=== PATIENT | male | born 1935 | race Caucasian/White ===

== ENCOUNTER 2021-05-21 17:55 | Inpatient (IN) ==
[2021-05-21] MEDS ORDERED: Naloxone 0.4 MG/ML INJ IVP PRN (21:08)
[2021-05-21] MEDS ORDERED: Ondansetron 4 MG/2 ML VIAL IVP PRN (21:08)
[2021-05-21] MEDS ORDERED: Acetaminophen 325 MG TABLET PO PRN (21:08)
[2021-05-21] MEDS: 0.9 % Sodium Chloride 1,000 ML IVC SCH (22:00)
[2021-05-22 01:28] LABS: Basophils % 0.2 %; Eosinophils # 0.1 K/mcL (0.0-0.6); Eosinophils % 2.8 %; Hematocrit 25.8 % (37.5-50.1); Hemoglobin 7.9 g/dL (12.9-16.9); Immature Granulocytes % 0.4 % (0-4); Lymphocytes # 0.9 K/mcL (0.6-4.6); Lymphocytes % 18.2 %; Mean Corpuscular HGB Conc 30.6 g/dL (31.6-35.5); Mean Corpuscular Hemoglobin 28.1 pg (28.0-33.3); Mean Corpuscular Volume 91.8 fL (83.0-100.0); Mean Platelet Volume 9.4 fL (9.4-12.4); Monocytes # 0.6 K/mcL (0.0-1.3); Neutrophils # 3.3 K/mcL (1.6-8.9); Platelet Count 204 K/mcL (140-400); Red Blood Count 2.81 M/mcL (4.19-5.50); Segmented Neutrophils % 66.4 %
[2021-05-22 01:39] LABS: INR 1.6; Prothrombin Time 18.2 Seconds (9.4-12.1)
[2021-05-22 01:54] LABS: BUN/Creatinine Ratio 19 (6-26); Blood Urea Nitrogen 20 mg/dL (8-23); Calcium 8.5 mg/dL (8.6-10.3); Carbon Dioxide 36 mEq/L (23-29); Chloride 99 mEq/L (98-107); Glucose 95 mg/dL (70-105); Iron 28 mcg/dL (65-175); Magnesium 1.7 mg/dL (1.6-2.6); Osmolality,Calculated 302 (280-300); Potassium 3.6 mEq/L (3.5-5.1); Sodium 145 mEq/L (136-145); eGFR For African Americans > 60 (> 60); eGFR For Non-African Americans > 60 (> 60)
[2021-05-22 02:09] LABS: Ferritin 34 ng/mL (20-250)
[2021-05-22 02:40] LABS: Bacteria,Urine Few per hpf (None-Few); Bilirubin,Urine Negative (Negative); Blood,Urine Moderate (Negative); Clarity,Urine Clear (Clear); Color,Urine Light-Yellow (Yellow); Glucose,Urine (UA) Normal (Normal); Ketones,Urine Negative (Negative); Leukocyte Esterase,Urine Negative (Negative); Nitrite,Urine Negative (Negative); Protein,Urine Trace mg/dL (Neg-Trace); RBC,Urine 50-100 per hpf (0-3); Specific Gravity,Urine 1.018 (1.010-1.025); Squamous Epithelial Cell,Urine Few per hpf (None-Few); Urobilinogen,Urine Normal (Normal); WBC,Urine 0-3 per hpf (0-3)
[2021-05-22 04:07] LABS: % Iron Saturation 9 % (20-55); Transferrin 229 mg/dL (203-362)
[2021-05-22 06:42] VITALS: BP 128/71
[2021-05-22] MEDS: 0.9 % Sodium Chloride 1,000 ML IVC SCH (08:58)
[2021-05-22] MEDS ORDERED: Gabapentin 100 MG CAPSULE PO SCH (09:00)
[2021-05-22] MEDS ORDERED: allopurinoL 100 MG TABLET PO SCH (09:00)
[2021-05-22] MEDS ORDERED: Furosemide 20 MG TABLET PO SCH (09:00)
[2021-05-22 11:24] LABS: Hematocrit 30.3 % (37.5-50.1); Hemoglobin 8.9 g/dL (12.9-16.9)
== END 2021-05-22 13:35 | disposition home or self-care (01) | DRG 694 ==
LOC: SUATTDRO 21:05 → 3BNU 21:05
PROVIDERS: ADMIT Internal Medicine; ATTEND Family Medicine